=== PATIENT | male | born 1990 | race Caucasian/White ===

== ENCOUNTER 2017-11-05 19:48 | Inpatient (IN) | payer SELFPAY ==
[~2017-11-05] VITALS: Ht 180.3 cm; Wt 130.7 kg
--- NOTE | ~2017-11-05 | EKG ---
[place], [place] ELECTROCARDIOGRAM REPORT NAME: KIRIT LOTT UNIT #: [id number] ROOM: 519 DOCTOR: SUN DRAFT REPORT BIRTHDATE: [birth year] [facility] Test Date: 2017-11-05 Test Time: 20:33:06 Pat Name: KIRIT LOTT Department: Room: 519 Gender: M Zipper Joiner: SS RESP : 1990 Requested By: DENISE LOMBARDI Order Number: [id number] Reading MD: Isael Carr MD Measurements Intervals [place] Rate: 84 P: 38 DC: 150 QRS: 19 QRSD: 135 T: 18 QT: 363 QTc: 430 Interpretive Statements Sinus rhythm IVCD, consider atypical RBBB ST elev, probable normal early repol pattern Electronically Signed On 11-07-2017 10:43:47 PDT by Isael Carr MD CM:[email or web address]:ELECTROCARDIOGRAM REPORT [id number] DENISE LOMBARDI MD EPIPHANY DRAFT REPORT DENISE LOMBARDI MD
--- NOTE | ~2017-11-05 | EKG ---
[place], [place] ELECTROCARDIOGRAM REPORT NAME: KIRIT LOTT UNIT #: [id number] ROOM: 519 DOCTOR: SUN DRAFT REPORT BIRTHDATE: [birth year] [facility] Test Date: 2017-11-05 Test Time: 19:55:26 Pat Name: KIRIT LOTT Department: Room: 519 Gender: M Human Services Program Specialist: : 1990 Requested By: DENISE LOMBARDI Order Number: [id number] Reading MD: Isael Carr MD Measurements Intervals [place] Rate: 91 P: 64 HI: 146 QRS: 18 QRSD: 121 T: 31 QT: 346 QTc: 426 Interpretive Statements Sinus rhythm IVCD, consider atypical RBBB Electronically Signed On 11-07-2017 10:43:16 PDT by Isael Carr MD CM:EKGRPT:ELECTROCARDIOGRAM REPORT [id number] DENISE LOMBARDI MD EPIPHANY DRAFT REPORT DENISE LOMBARDI MD
[2017-11-05 19:48] VITALS: BP 169/100
[~2017-11-05 19:48] MED LIST: DARVOCET N 1001 TAB PO; MOTRIN800 MG PO
[2017-11-05 19:59] LABS: BASO # 0.1 10*3/uL (0.0-0.1); BASO % 0.4 % (0.0-1.0); EOS % 0.1 % (1.0-4.0); HEMATOCRIT 48.6 % (42.0-52.0); HEMOGLOBIN 16.3 g/dl (14.0-18.0); LYMPH # 1.9 10*3/uL (1.3-4.4); LYMPH % 9.8 % (27.0-41.0); MEAN CELL VOLUME 83.8 fl (80.0-94.0); MEAN CORPUSCULAR HGB 28.1 pg (27.0-31.0); MEAN CORPUSCULAR HGB CONC 33.5 g/dl (33.0-37.0); MEAN PLATELET VOLUME 11.5 fl (9.6-12.3); MONO # 0.8 10*3/uL (0.1-1.0); MONO % 4.4 % (3.0-9.0); NEUT # 16.4 10*3/uL (2.3-7.9); NEUT % 84.9 % (47.0-73.0); PLATELET COUNT AUTOMATED 283 10*3/uL (130-400); RED CELL DISTRI WIDTH 12.4 % (0-14.5); WHITE BLOOD COUNT 19.3 10*3/uL (4.8-10.8)
[2017-11-05 20:12] LABS: ACT PARTIAL THROMBO TIME 20.8 SECONDS (20.8-31.5)
[2017-11-05 20:18] LABS: ALBUMIN 4.6 gm/dl (3.1-4.5); CREATININE 2.06 mg/dL (0.70-1.30); POTASSIUM 4.1 mmol/L (3.5-5.1); TOTAL PROTEIN 9.1 gm/dL (6.4-8.2)
[2017-11-05 20:32] LABS: TROPONIN I 0.095 ng/ml (<0.045)
[2017-11-05 20:46] VITALS: BP 164/110
[2017-11-05 22:03] VITALS: BP 164/67
[2017-11-05 22:15] VITALS: BP 156/100
== END 2017-11-05 23:04 | disposition left against medical advice (07) | DRG 684 ==
LOC: ED 19:48 → EDHOLD 21:40 → 5E 22:12
PROVIDERS: Emergency Medicine Emergency Medical Services
DX: N17.9 Acute kidney failure, unspecified (principal); I10 Essential (primary) hypertension; R07.9 Chest pain, unspecified

== ENCOUNTER 2019-01-19 13:22 | Emergency (ER) | payer SELFPAY ==
[~2019-01-19] VITALS: Ht 182.8 cm; Wt 140.6 kg
[2019-01-19] MEDS ORDERED: AUGMENTIN 875-875 MG PO (14:51)
== END 2019-01-19 15:09 | disposition home or self-care (01) ==
LOC: ED 13:22
DX: K02.9 Dental caries, unspecified (principal); I10 Essential (primary) hypertension

== ENCOUNTER 2020-07-25 18:58 | Emergency (ER) | payer OTHER ==
[~2020-07-25] VITALS: Ht 180.3 cm; Wt 127.0 kg
[~2020-07-25 18:58] MED LIST changes: +AUGMENTIN 875-875 MG PO
[2020-07-25] MEDS ORDERED: PREDNISONE10 MG PO (19:21)
== END 2020-07-25 19:30 | disposition home or self-care (01) ==
LOC: ED 18:58
DX: L23.9 Allergic contact dermatitis, unspecified cause (principal); Z79.899 Other long term (current) drug therapy; Z98.890 Other specified postprocedural states

== ENCOUNTER 2020-10-18 09:32 | Inpatient (IN) | payer OTHER ==
[~2020-10-18] VITALS: Ht 180.3 cm; Wt 123.9 kg
[~2020-10-18 09:32] MED LIST changes: +PREDNISONE10 MG PO
[2020-10-18 09:36] VITALS: BP 167/112
[2020-10-18 10:13] LABS: BASO # 0.1 10*3/uL (0.0-0.1); BASO % 0.6 % (0.0-1.0); EOS % 0.3 % (1.0-4.0); LYMPH % 8.5 % (27.0-41.0); MEAN CELL VOLUME 83.5 fl (80.0-94.0); MEAN CORPUSCULAR HGB 27.9 pg (27.0-31.0); MEAN CORPUSCULAR HGB CONC 33.5 g/dl (33.0-37.0); MEAN PLATELET VOLUME 11.4 fl (9.6-12.3); MONO # 0.8 10*3/uL (0.1-1.0); MONO % 7.3 % (3.0-9.0); NEUT # 9.5 10*3/uL (2.3-7.9); NEUT % 82.9 % (47.0-73.0); PLATELET COUNT AUTOMATED 305 10*3/uL (130-400); RED BLOOD COUNT 5.87 10*6/uL (4.50-5.90); RED CELL DISTRI WIDTH 12.5 % (0-14.5); WHITE BLOOD COUNT 11.5 10*3/uL (4.8-10.8)
[2020-10-18 10:29] LABS: ALBUMIN 4.1 gm/dl (3.1-4.5); ALKALINE PHOSPHATASE 102 U/L (45-117); BUN 10 mg/dl (7-24); CHLORIDE 100 mmol/L (98-107); CREATININE 1.24 mg/dL (0.70-1.30); POTASSIUM 3.3 mmol/L (3.5-5.1); SGOT/AST 85 IU/L (3-35); SGPT/ALT 324 U/L (12-78); SODIUM 136 mmol/L (136-145); TOTAL PROTEIN 8.3 gm/dL (6.4-8.2)
[2020-10-18 10:42] LABS: LIPASE 14892 U/L (73-393)
[2020-10-18 10:47] LABS: BILIRUBIN 3+ (Negative); BLOOD Negative (Negative); CLARITY Clear (Clear); COLOR Dark Yellow (Yellow); GLUCOSE Negative (Negative); KETONE 4+ (Negative); NITRITE Positive (Negative); PH 6.5 (4.5-8.0); SPECIFIC GRAVITY >= 1.030 (1.001-1.030)
[2020-10-18 11:14] LABS: LEUKO ESTERASE 2+ (Negative)
[2020-10-18 11:18] LABS: RBC 0-2 rbc/hpf (0-2)
[2020-10-18 11:19] LABS: BACTERIA 2+; WBC 21-30 wbc/hpf (0-5)
[2020-10-18 11:20] LABS: MUCOUS 3+
[2020-10-18 13:31] VITALS: BP 161/111
[2020-10-18 20:51] VITALS: BP 169/99
[2020-10-18 21:30] VITALS: BP 165/104
[2020-10-18 21:48] VITALS: BP 165/104
[2020-10-19] VITALS (9 sets, daily range): BP systolic 143–160; BP diastolic 87–101
[2020-10-19 07:10] LABS: BASO # 0.1 10*3/uL (0.0-0.1); BASO % 0.6 % (0.0-1.0); EOS # 0.2 10*3/uL (0.0-0.4); EOS % 2.8 % (1.0-4.0); LYMPH # 1.6 10*3/uL (1.3-4.4); LYMPH % 19.9 % (27.0-41.0); MEAN CELL VOLUME 86.2 fl (80.0-94.0); MEAN CORPUSCULAR HGB 27.7 pg (27.0-31.0); MEAN CORPUSCULAR HGB CONC 32.1 g/dl (33.0-37.0); MONO # 0.9 10*3/uL (0.1-1.0); MONO % 11.3 % (3.0-9.0); NEUT # 5.4 10*3/uL (2.3-7.9); PLATELET COUNT AUTOMATED 245 10*3/uL (130-400); RED BLOOD COUNT 4.99 10*6/uL (4.50-5.90); RED CELL DISTRI WIDTH 12.9 % (0-14.5); WHITE BLOOD COUNT 8.2 10*3/uL (4.8-10.8)
[2020-10-19 07:42] LABS: ALBUMIN 3.2 gm/dl (3.1-4.5); BUN 9 mg/dl (7-24); CHLORIDE 102 mmol/L (98-107); CREATININE 0.94 mg/dL (0.70-1.30); SGOT/AST 49 IU/L (3-35); SGPT/ALT 218 U/L (12-78); SODIUM 136 mmol/L (136-145)
[2020-10-19 07:46] LABS: ALKALINE PHOSPHATASE 80 U/L (45-117); LIPASE 2585 U/L (73-393); TOTAL PROTEIN 6.8 gm/dL (6.4-8.2)
[2020-10-20] VITALS (14 sets, daily range): BP systolic 134–177; BP diastolic 82–110
[2020-10-20 06:21] LABS: BASO # 0.1 10*3/uL (0.0-0.1); BASO % 0.8 % (0.0-1.0); EOS # 0.2 10*3/uL (0.0-0.4); EOS % 2.6 % (1.0-4.0); HEMATOCRIT 42.6 % (42.0-52.0); LYMPH # 1.3 10*3/uL (1.3-4.4); LYMPH % 16.9 % (27.0-41.0); MEAN CELL VOLUME 85.9 fl (80.0-94.0); MEAN CORPUSCULAR HGB 27.6 pg (27.0-31.0); MEAN CORPUSCULAR HGB CONC 32.2 g/dl (33.0-37.0); MEAN PLATELET VOLUME 11.5 fl (9.6-12.3); MONO # 0.9 10*3/uL (0.1-1.0); MONO % 11.7 % (3.0-9.0); NEUT # 5.2 10*3/uL (2.3-7.9); NEUT % 67.6 % (47.0-73.0); PLATELET COUNT AUTOMATED 238 10*3/uL (130-400); RED BLOOD COUNT 4.96 10*6/uL (4.50-5.90); RED CELL DISTRI WIDTH 12.8 % (0-14.5); WHITE BLOOD COUNT 7.6 10*3/uL (4.8-10.8)
[2020-10-20 06:36] LABS: ALBUMIN 3.2 gm/dl (3.1-4.5); BUN 7 mg/dl (7-24); CHLORIDE 106 mmol/L (98-107); CREATININE 0.91 mg/dL (0.70-1.30); POTASSIUM 3.3 mmol/L (3.5-5.1); SGOT/AST 41 IU/L (3-35); SGPT/ALT 173 U/L (12-78); SODIUM 138 mmol/L (136-145)
[2020-10-20 06:37] LABS: ALKALINE PHOSPHATASE 76 U/L (45-117)
[2020-10-21] VITALS: BP 160/91
[2020-10-21 06:43] LABS: BASO % 0.1 % (0.0-1.0); HEMATOCRIT 43.3 % (42.0-52.0); LYMPH # 0.8 10*3/uL (1.3-4.4); LYMPH % 8.3 % (27.0-41.0); MEAN CELL VOLUME 85.2 fl (80.0-94.0); MEAN CORPUSCULAR HGB CONC 32.8 g/dl (33.0-37.0); MEAN PLATELET VOLUME 12.2 fl (9.6-12.3); MONO # 0.8 10*3/uL (0.1-1.0); MONO % 7.9 % (3.0-9.0); NEUT # 8.1 10*3/uL (2.3-7.9); NEUT % 83.4 % (47.0-73.0); PLATELET COUNT AUTOMATED 279 10*3/uL (130-400); RED BLOOD COUNT 5.08 10*6/uL (4.50-5.90); RED CELL DISTRI WIDTH 12.4 % (0-14.5); WHITE BLOOD COUNT 9.7 10*3/uL (4.8-10.8)
[2020-10-21 07:06] LABS: ALBUMIN 3.4 gm/dl (3.1-4.5); BUN 8 mg/dl (7-24); CHLORIDE 104 mmol/L (98-107); POTASSIUM 3.7 mmol/L (3.5-5.1); SODIUM 136 mmol/L (136-145)
[2020-10-21 07:11] LABS: ALKALINE PHOSPHATASE 79 U/L (45-117); CREATININE 0.87 mg/dL (0.70-1.30); SGOT/AST 51 IU/L (3-35); SGPT/ALT 167 U/L (12-78); TOTAL PROTEIN 7.4 gm/dL (6.4-8.2)
[2020-10-21 08:00] VITALS: BP 125/87
[2020-10-21] MEDS ORDERED: PERCOCET 5-3251 EACH PO (08:44)
[2020-10-21] MEDS ORDERED: CIPRO500 MG PO (08:44)
[2020-10-21] MEDS ORDERED: ZOFRAN4 MG PO (08:44)
[2020-10-21] MEDS ORDERED: FLAGYL500 MG PO (08:44)
[2020-10-21] MEDS ORDERED: DULCOLAX STOOL100 M1 PO (08:44)
== END 2020-10-21 12:05 | disposition home or self-care (01) | DRG 263 ==
LOC: ED 09:32 → EDHOLD 18:39 → 4E 18:39
PROVIDERS: Family Medicine; Internal Medicine; Student in an Organized Health Care Education/Training Program; ADMIT Internal Medicine; ATTEND Internal Medicine
PROC: 0FC98ZZ Extirpation of Matter from Common Bile Duct, Via Natural or Artificial Opening Endoscopic (ICD-10-PCS; principal; 2020-10-19)
PROC: 0F798DZ Dilation of Common Bile Duct with Intraluminal Device, Via Natural or Artificial Opening Endoscopic (ICD-10-PCS; 2020-10-19)
PROC: 0FT44ZZ Resection of Gallbladder, Percutaneous Endoscopic Approach (ICD-10-PCS; 2020-10-20)
DX: K80.61 Calculus of gallbladder and bile duct with cholecystitis, unspecified, with obstruction (principal); K85.10 Biliary acute pancreatitis without necrosis or infection; R74.01 Elevation of levels of liver transaminase levels; E87.6 Hypokalemia; R73.9 Hyperglycemia, unspecified; D72.829 Elevated white blood cell count, unspecified; R03.0 Elevated blood-pressure reading, without diagnosis of hypertension; K29.70 Gastritis, unspecified, without bleeding

== ENCOUNTER → 2020-10-28 | Outpatient (CLI) | payer OTHER ==
[~2020-10-28] MED LIST changes: +CIPRO500 MG PO; +DULCOLAX STOOL100 M1 PO; +FLAGYL500 MG PO; +PERCOCET 5-3251 EACH PO; +ZOFRAN4 MG PO
== END | disposition home or self-care (01) ==
LOC: RESCLI 02:46
PROVIDERS: ATTEND Internal Medicine
DX: I10 Essential (primary) hypertension (principal); K85.10 Biliary acute pancreatitis without necrosis or infection; Z90.49 Acquired absence of other specified parts of digestive tract; Z79.899 Other long term (current) drug therapy

== ENCOUNTER → 2020-11-11 | Outpatient (CLI) | payer OTHER | END | disposition home or self-care (01) | LOC: RESCLI 00:41 | PROVIDERS: ATTEND Internal Medicine | DX: F43.10 Post-traumatic stress disorder, unspecified (principal); I10 Essential (primary) hypertension; G47.30 Sleep apnea, unspecified; Z90.49 Acquired absence of other specified parts of digestive tract; Z79.899 Other long term (current) drug therapy ==

== ENCOUNTER → 2020-12-09 | Outpatient (CLI) | payer OTHER | END | disposition home or self-care (01) | LOC: RESCLI 01:22 | PROVIDERS: Internal Medicine; ATTEND Internal Medicine | DX: F43.10 Post-traumatic stress disorder, unspecified (principal); I10 Essential (primary) hypertension; Z79.899 Other long term (current) drug therapy; Z90.49 Acquired absence of other specified parts of digestive tract ==

== ENCOUNTER 2023-06-27 05:42 | Emergency (ER) | payer OTHER ==
[~2023-06-27] VITALS: Ht 182.8 cm; Wt 127.0 kg
[2023-06-27] MEDS ORDERED: ZESTORETIC 10-1 EACH PO (05:54)
== END 2023-06-27 06:08 | disposition home or self-care (01) ==
LOC: ED 05:42
DX: B34.9 Viral infection, unspecified (principal); R11.0 Nausea; R19.7 Diarrhea, unspecified; I10 Essential (primary) hypertension; F90.9 Attention-deficit hyperactivity disorder, unspecified type; Z98.890 Other specified postprocedural states

== ENCOUNTER 2023-08-14 05:29 | Emergency (ER) | payer OTHER ==
[~2023-08-14] VITALS: Ht 182.8 cm; Wt 138.3 kg
[~2023-08-14 05:29] MED LIST changes: +ZESTORETIC 10-1 EACH PO
[2023-08-14 06:11] LABS: BASO % 0.4 % (0.0-1.0); EOS # 0.3 10*3/uL (0.0-0.4); EOS % 2.8 % (1.0-4.0); HEMATOCRIT 41.9 % (42.0-52.0); LYMPH % 21.1 % (27.0-41.0); MEAN CELL VOLUME 85.2 fl (80.0-94.0); MEAN CORPUSCULAR HGB 28.5 pg (27.0-31.0); MEAN CORPUSCULAR HGB CONC 33.4 g/dl (33.0-37.0); MEAN PLATELET VOLUME 11.6 fl (9.6-12.3); MONO # 0.7 10*3/uL (0.1-1.0); MONO % 7.9 % (3.0-9.0); NEUT # 6.2 10*3/uL (2.3-7.9); NEUT % 67.6 % (47.0-73.0); PLATELET COUNT AUTOMATED 258 10*3/uL (130-400); RED BLOOD COUNT 4.92 10*6/uL (4.50-5.90); RED CELL DISTRI WIDTH 12.6 % (0-14.5); WHITE BLOOD COUNT 9.2 10*3/uL (4.8-10.8)
[2023-08-14 06:28] LABS: ALKALINE PHOSPHATASE 57 U/L (46-116); BUN 16 mg/dl (9-23); CHLORIDE 103 mmol/L (98-107); POTASSIUM 4.2 mmol/L (3.4-5.1); SGPT/ALT 21 U/L (5-49); TOTAL PROTEIN 7.2 gm/dL (6.0-8.0)
== END 2023-08-14 06:50 | disposition home or self-care (01) ==
LOC: ED 05:29
PROVIDERS: Internal Medicine
DX: A08.8 Other specified intestinal infections (principal); I10 Essential (primary) hypertension; F90.9 Attention-deficit hyperactivity disorder, unspecified type; Z98.890 Other specified postprocedural states

== ENCOUNTER 2023-08-28 15:21 | Emergency (ER) | payer OTHER ==
[~2023-08-28] VITALS: Ht 182.8 cm; Wt 127.0 kg
[2023-08-28] MEDS ORDERED: AMOX-CLAV 875-1 EACH PO (17:02)
== END 2023-08-28 17:23 | disposition home or self-care (01) ==
LOC: ED 15:21
DX: H66.92 Otitis media, unspecified, left ear (principal); I10 Essential (primary) hypertension; F90.9 Attention-deficit hyperactivity disorder, unspecified type; Z98.890 Other specified postprocedural states

== ENCOUNTER 2023-10-02 04:48 | Emergency (ER) | payer OTHER ==
[~2023-10-02] VITALS: Ht 182.8 cm; Wt 113.4 kg
[~2023-10-02 04:48] MED LIST changes: +AMOX-CLAV 875-1 EACH PO
[2023-10-02] MEDS ORDERED: Ondansetron4 MG PO (05:09)
[2023-10-02] MEDS ORDERED: Ondansetron Hydrochloride 4 MG TAB SL ONE (05:10)
== END 2023-10-02 05:12 | disposition home or self-care (01) ==
LOC: ED 04:48
DX: R11.0 Nausea (principal); T36.95XA Adverse effect of unspecified systemic antibiotic, initial encounter; Z79.2 Long term (current) use of antibiotics; Z79.899 Other long term (current) drug therapy; Z98.890 Other specified postprocedural states; Y92.89 Other specified places as the place of occurrence of the external cause

== ENCOUNTER 2023-10-31 10:32 | Emergency (ER) | payer OTHER ==
[~2023-10-31] VITALS: Ht 182.8 cm
[~2023-10-31 10:32] MED LIST changes: +Ondansetron4 MG PO
[2023-10-31] MEDS ORDERED: POLYMYXIN B/TRI10 M1 OPH (10:48)
== END 2023-10-31 11:11 | disposition home or self-care (01) ==
LOC: ED 10:32
DX: H10.9 Unspecified conjunctivitis (principal); I10 Essential (primary) hypertension; F90.9 Attention-deficit hyperactivity disorder, unspecified type; Z90.49 Acquired absence of other specified parts of digestive tract; Z98.890 Other specified postprocedural states

== ENCOUNTER → 2023-12-24 | Outpatient (CLI) | payer OTHER ==
[~2023-12-24] MED LIST changes: +POLYMYXIN B/TRI10 M1 OPH
[2023-12-24 16:54] LABS: BASO # 0.1 10*3/uL (0.0-0.1); BASO % 0.7 % (0.0-1.0); EOS # 0.1 10*3/uL (0.0-0.4); EOS % 1.5 % (1.0-4.0); HEMATOCRIT 48.8 % (42.0-52.0); LYMPH # 1.6 10*3/uL (1.3-4.4); LYMPH % 17.2 % (27.0-41.0); MEAN CELL VOLUME 83.1 fl (80.0-94.0); MEAN CORPUSCULAR HGB 28.4 pg (27.0-31.0); MEAN CORPUSCULAR HGB CONC 34.2 g/dl (33.0-37.0); MONO # 1.3 10*3/uL (0.1-1.0); MONO % 13.9 % (3.0-9.0); NEUT # 6.3 10*3/uL (2.3-7.9); NEUT % 66.5 % (47.0-73.0); PLATELET COUNT AUTOMATED 269 10*3/uL (130-400); RED BLOOD COUNT 5.87 10*6/uL (4.50-5.90); RED CELL DISTRI WIDTH 12.4 % (0-14.5); WHITE BLOOD COUNT 9.5 10*3/uL (4.8-10.8)
[2023-12-24 17:18] LABS: ALKALINE PHOSPHATASE 63 U/L (46-116); BUN 15 mg/dl (9-23); CHLORIDE 99 mmol/L (98-107); SGPT/ALT 35 U/L (5-49); TOTAL PROTEIN 8.2 gm/dL (6.0-8.0)
== END | disposition home or self-care (01) ==
LOC: LAB 16:36
PROVIDERS: ATTEND Nurse Practitioner
DX: R06.02 Shortness of breath (principal)

== ENCOUNTER 2024-01-05 11:31 | Emergency (ER) | payer OTHER ==
[~2024-01-05] VITALS: Ht 182.8 cm; Wt 119.3 kg
== END 2024-01-05 12:54 | disposition home or self-care (01) ==
LOC: ED 11:31
DX: Z00.00 Encounter for general adult medical examination without abnormal findings (principal); I10 Essential (primary) hypertension; F90.9 Attention-deficit hyperactivity disorder, unspecified type; Z90.49 Acquired absence of other specified parts of digestive tract; Z98.890 Other specified postprocedural states

== ENCOUNTER 2024-06-15 16:27 | Emergency (ER) | payer SELFPAY ==
[~2024-06-15] VITALS: Ht 182.8 cm; Wt 120.2 kg
== END 2024-06-15 21:20 | disposition home or self-care (01) ==
LOC: ED 16:27
DX: S83.91XA Sprain of unspecified site of right knee, initial encounter (principal); M54.50 Low back pain, unspecified; M25.571 Pain in right ankle and joints of right foot; M25.561 Pain in right knee; Z98.890 Other specified postprocedural states; Z79.899 Other long term (current) drug therapy; V86.56XA Driver of dirt bike or motor/cross bike injured in nontraffic accident, initial encounter; Y93.55 Activity, bike riding; Y92.828 Other wilderness area as the place of occurrence of the external cause; Y99.8 Other external cause status